=== PATIENT | male | born 1945 | race Caucasian/White ===

== ENCOUNTER → 2016-06-20 | Outpatient (CLI) | payer MEDICARE, OTHER | LOC: MW.CHPS 08:00 | DX: G90.519 Complex regional pain syndrome I of unspecified upper limb (principal) | CPT/HCPCS: G0463 ==

== ENCOUNTER → 2016-08-22 | Outpatient (CLI) | payer MEDICARE, OTHER | LOC: MW.CHPS 08:00 | PROVIDERS: ATTEND Plastic Surgery | DX: M12.9 Arthropathy, unspecified (principal); M62.81 Muscle weakness (generalized); G90.519 Complex regional pain syndrome I of unspecified upper limb | CPT/HCPCS: 99214 ==

== ENCOUNTER 2021-10-19 12:03 | Emergency (ER) | payer MEDICARE, OTHER ==
[2021-10-19 12:23] VITALS: BP 132/63
[2021-10-19] MEDS ORDERED: Albuterol/Ipratropium 3.0-0.5 MG/3 ML Neb Soln NEB ONE (12:36)
[2021-10-19 13:28] LABS: CARBON DIOXIDE,CO2 26.1 mmol/L (21.0-32.0); POTASSIUM,K 4.2 mmol/L (3.5-5.1)
[2021-10-19] MEDS ORDERED: Sodium Chloride 0.9% 10 ML Syringe FLUSH PRN (13:30)
[2021-10-19] MEDS ORDERED: Sodium Chloride 0.9% 2.5 ML Syringe FLUSH PRN (13:30)
[2021-10-19] MEDS ORDERED: Sodium Chloride 0.9% 1,000 ML IV ONE (13:30)
[2021-10-19] MEDS ORDERED: Albuterol 0.083% 2.5 MG/3 ML Neb Soln NEB ONE (14:19)
[2021-10-19 15:20] VITALS: PULSE 77
[2021-10-19] MEDS ORDERED: Iopamidol 755 MG/ML 500 ML Multipack Bottle IVPUSH ONE (18:07)
== END 2021-10-19 15:20 | disposition home or self-care (01) ==
LOC: MW.ED 12:03
DX: J45.41 Moderate persistent asthma with (acute) exacerbation (principal); I10 Essential (primary) hypertension; I25.2 Old myocardial infarction; J44.9 Chronic obstructive pulmonary disease, unspecified; E78.00 Pure hypercholesterolemia, unspecified; Z20.822 Contact with and (suspected) exposure to COVID-19; Z87.891 Personal history of nicotine dependence; Z79.899 Other long term (current) drug therapy; Z88.8 Allergy status to other drugs, medicaments and biological substances
CPT/HCPCS: 36415; 71046; 71260; 80053; 83735; 83880; 85025; 93005; 94640; 96360; 99285; J3490; J7030; Q9967; U0002; J7620-GY